=== PATIENT | female | born 1980 | race Hispanic/Latino ===

== ENCOUNTER 2018-08-30 22:17 | Emergency (ER) | payer OTHER | END 2018-08-30 23:14 | disposition home or self-care (01) | LOC: EDH 22:17 | DX: R07.81 Pleurodynia (principal); F41.9 Anxiety disorder, unspecified; F32.9 Major depressive disorder, single episode, unspecified; Z98.890 Other specified postprocedural states; Z79.899 Other long term (current) drug therapy | CPT/HCPCS: 99281 ==

== ENCOUNTER 2023-06-16 02:23 | Emergency (ER) | payer MEDICAID ==
[~2023-06-16] VITALS: Ht 162.6 cm; Wt 89.8 kg
[2023-06-16 02:40] VITALS: BP 139/79; PULSE 72; RESP 18; O2SAT 99
[2023-06-16] MEDS ORDERED: CEFAZOLIN SODIUM 2 GM VIAL IVPB STA (02:40)
[2023-06-16] MEDS ORDERED: CEFAZOLIN SODIUM 2 GM VIAL ONE (02:51)
[2023-06-16] MEDS ORDERED: KETOROLAC 60 MG VIAL (30MG/ML) IM ONE ×2 (02:51→03:00)
[2023-06-16] MEDS ORDERED: TETANUS/DIPHTHERIA TOXOID [ADULT] 0.5 ML VIAL IM ONE (02:52)
[2023-06-16] MEDS ORDERED: LIDOCAINE 1%-EPI 1:100,000 20 ML VIAL IJ SCH (03:00)
[2023-06-16] MEDS ORDERED: DIPH,PERTUSS(ACELL),TET VAC/PF 0.5 ML VIAL IM ONE (03:00)
== END 2023-06-16 03:56 | disposition left against medical advice (07) ==
LOC: EDH 02:23
DX: S51.831A Puncture wound without foreign body of right forearm, initial encounter (principal); W54.0XXA Bitten by dog, initial encounter; Y93.89 Activity, other specified; Y92.89 Other specified places as the place of occurrence of the external cause; Y99.8 Other external cause status
CPT/HCPCS: 99284; 96365; 90714; 73090 ×2; 73130; 73060; 96372; 90471; J1885; J0690